=== PATIENT | male | born 1985 | race Caucasian/White ===

== ENCOUNTER 2019-08-04 09:41 | Emergency (ER) | payer BC ==
--- NOTE | 2019-08-04 09:48 | EDM.PDOC ---
ED HPI GENERAL MEDICAL PROBLEM - General Chief Complaint: Chest Pain Stated Complaint: CHEST PAIN Time Seen by Provider: 08/04/19 09:48 Source of Information: Reports: Patient History Limitations: Reports: No Limitations - History of Present Illness INITIAL COMMENTS - FREE TEXT/NARRATIVE: 34-year-old male attends the ED with chief complaint of chest pain. He has some pain on inspiration particular choral air. He has resolving influenza type B infection which infected his entire family. Still has a very paroxysmal minimally productive cough. Cold air makes this worse. He feels like he can get a full deep breath before coughing. Chest pain tends to be pleuritic and worsened by cough but also in the central anterior chest. Appetite has returned. No further fever or chills. No further headache. Perhaps mild sore throats with mild sinus congestion and postnasal drip. Onset: Gradual Onset Date: 08/01/19 (Had influenza type B for the last week starting 10 days ago. Still has paroxysmal cough.) Duration: Day(s):, Intermittent, Waxing/Waning Location: Reports: Chest (Paroxysmal cough.), Other (Associated pleuritic chest pain in a sense of not being able to get his full deep breath.) Quality: Reports: Sharp, Stabbing, Other Severity: Moderate (Paroxysmal cough) Improves with: Reports: None Worsens with: Reports: Other (Worse with exertion especially and exposure ) Context: Denies: Activity (to cold air outside.), Exercise, Lifting, Sick Contact, Trauma, Other Associated Symptoms: Reports: Chest Pain, Cough, cough w sputum, Shortness of Breath. 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 (see below) (None.) Chest Pain Score (Numeric/FACES): 5 - Related Data Allergies Allergy/AdvReac Type Severity Reaction Status Date / Time No Known Allergies Allergy Verified 08/04/19 09:50 Home Meds: Home Meds Doxycycline [Vibramycin] 100 mg PO BID #20 cap 08/04/19 [Rx] FLUoxetine HCl [Fluoxetine HCl] 40 mg PO DAILY 08/04/19 [History] HYDROcodone/Chlorphen Polis [Hydrocodone-Chlorpheniram] 5 ml PO Q12H #60 ml [Rx] dexAMETHasone [Dexamethasone] 4 mg PO Q8H #15 tablet 08/04/19 [Rx] Past Medical History Psychiatric History: Reports: Anxiety, Depression Social & Family History - Tobacco Use Smoking Status *Q: Never Smoker ED ROS GENERAL - Review of Systems Review Of Systems: See Below Constitutional: Reports: Malaise, Fatigue. Denies: Fever, Chills, Decreased Appetite, Weight Loss HEENT: Reports: Other (Sinus congestion postnasal drip.) Respiratory: Reports: Shortness of Breath, Pleuritic Chest Pain, Cough, Sputum. Denies: Wheezing, Hemoptysis, Other Cardiovascular: Reports: Chest Pain (3 minimal sputum at this time.), Dyspnea on Exertion ( Mostly pleuritic-type pain upper anterior chest both sides.). Denies: Lightheadedness, Orthopnea, Palpitations GI/Abdominal: Reports: Decreased Appetite : Reports: No Symptoms (Not quite back to normal yet post influenza.) Musculoskeletal: Reports: No Symptoms Skin: Reports: No Symptoms Neurological: Reports: No Symptoms Psychiatric: Reports: No Symptoms Hematologic/Lymphatic: Reports: No Symptoms Immunologic: Reports: No Symptoms ED EXAM, GENERAL - Physical Exam Exam: See Below Exam Limited By: No Limitations General Appearance: Alert, WD/WN, No Apparent Distress, Other (Vital signs show temperature 36.6. Heart rate is 70 and sinus respiratory 16 BP 148/94 with O2 sats of 98% on room air.) Eye Exam: Bilateral Eye: Normal Inspection (No scleral icterus and no peripheral pallor.), PERRL Ears: Normal TMs Throat/Mouth: Normal Inspection, Normal Lips, Normal Teeth, Normal Oropharynx, Other Head: Atraumatic, Normocephalic Neck: Normal Inspection (No exudates.), Supple, Non-Tender, Full Range of Motion. No: Lymphadenopathy (L), Lymphadenopathy (R) Respiratory/Chest: No Respiratory Distress, Lungs Clear, Normal Breath Sounds, No Accessory Muscle Use, Chest Non-Tender, Other. No: Crackles, Rales, Rhonchi , Wheezing Cardiovascular: Normal Peripheral Pulses, Regular Rate, Rhythm, No Edema ( Productive sounding cough i.e. bronchitis.), No Gallop, No Murmur, No Rub Peripheral Pulses: 3+: Posterior Tibial (L), Posterior Tibial (R), Dorsalis Pedis (L), Dorsalis Pedis (R) GI/Abdominal: Normal Bowel Sounds, Soft, Non-Tender, No Organomegaly, No Abnormal Bruit, No Mass, Pelvis Stable, Other Back Exam: Normal Inspection, Full Range of Motion. No: CVA Tenderness (L), CVA Tenderness (R) Extremities: Normal Inspection, Normal Range of Motion, Non-Tender Neurological: Alert, Oriented, CN II-XII Intact, Normal Cognition, Normal Gait ( No surgical scars) Psychiatric: Normal Affect, Normal Mood Skin Exam: Warm, Dry, Intact, Normal Color, No Rash EKG INTERPRETATION EKG Date: 08/04/19 Time: 09:56 Rhythm: NSR Rate (Beats/Min): 70 Harrison: LAD-Left Harrison Deviation (Mild left axis deviation -27.) P-Wave: Present QRS: Other (There are near Q waves in leads 3 and aVF consider old inferior wall myocardial infarction) ST-T: Other (T-wave inversion flattening in aVF.) QT: Normal EKG Interpretation Comments: Borderline ECG Course - Vital Signs Last Recorded V/S: Last Vital Signs Temp 36.6 C 08/04/19 09:46 Pulse 70 08/04/19 09:46 Resp 16 08/04/19 09:46 BP 148/94 H 08/04/19 09:46 Pulse Ox 100 08/04/19 10:16 - Orders/Labs/Meds Orders: Active Orders 24 hr Category Date Time Status RT Aerosol Therapy [RC] ASDIRECTED Care 08/04/19 09:58 Active Chest 1V Frontal [CR] Stat Exams 08/04/19 09:57 Taken Meds: Medications Discontinued Medications Generic Name Dose Route Start Last Admin Trade Name Freq PRN Reason Stop Dose Admin Albuterol/Ipratropium 3 ml 08/04/19 09:58 08/04/19 10:16 Duoneb 3.0-0.5 Mg/3 Ml NEB 08/04/19 09:59 3 ml ONETIME ONE Administration - Radiology Interpretation Free Text/Narrative:: 34-year-old male presents to the ED due to post influenza symptoms of paroxysmal cough and some pleuritic chest pain worsened by exposure to cool air. 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 Didn't think that he is wheezing. No wheezes identified on exam. Lungs are clear to stage percussion the remainder of his vitals are normal. He does have a paroxysmal productive sounding cough or bronchitis from upper anterior chest. Chest x-ray. Triage nurses to do an ECG which does not show any signs of ischemia. Will try a DuoNeb while he is here to see if this improves his subjective dyspnea. - Re-Assessments/Exams Free Text/Narrative Re-Assessment/Exam: 08/04/19 10:19 chest x-ray done portably is within normal limits showing no signs of pneumonia. Cardiac silhouette is normal in size. 08/04/19 10:24 patient did not feel he got much relief from the DuoNeb treatment. Plan due to his persistent sinus congestion made worse by coughing and severe paroxysmal cough he will be treated with antibiotic and 100 mg twice daily for the next 10 days. Cough syrup will be sent us 5 mils every 12 hours when necessary for cough relief. I'm going to place him on dexamethasone 4 mg 3 times a day for the next 5 days to reduce inflammation of the upper airway. Departure - Departure Time of Disposition: 10:25 Disposition: Home, Self-Care 01 Reason for Transfer *Q: Other Condition: Fair Clinical Impression: Sinusitis, acute Qualifiers: Sinusitis location: frontal Recurrence: recurrent Qualified Code(s): J01.11 - Acute recurrent frontal sinusitis Acute bronchitis Qualifiers: Bronchitis organism: other organism Qualified Code(s): J20.8 - Acute bronchitis due to other specified organisms Prescriptions: dexAMETHasone [Dexamethasone] 4 mg PO Q8H #15 tablet Doxycycline [Vibramycin] 100 mg PO BID #20 cap HYDROcodone/Chlorphen Polis [Hydrocodone-Chlorpheniram] 5 ml PO Q12H #60 ml Instructions: Acute Bronchitis, Adult, [id number], Sinusitis, Adult Referrals: Radames Ruiz MD [Primary Care Provider] - Forms: ED Department Discharge, ED Return to Work/School Form Additional Instructions: Evaluation the emergency room today in regards to severe paroxysmal cough made worse by exposure to cool air outside. Opening influenza infection. Currently sinus infection with postnasal drip aggravating cough. Chest x-ray was negative for pneumonia. No real improvement with a trial of inhaled albuterol and Atrovent. Suggest treatment with antibiotic toxic and 100 mg twice daily for the next 10 days for sinus congestion and bronchitis. Use dexamethasone 4 mg tablet 3 times daily usually with meals for the next 5 days to reduce inflammation of both the sinuses and bronchial tubes. Syrup is to be pending tests 5 mils about an hour before going to bed and then half a teaspoon in the morning or before going to work if needed until cough resolves. Expect gradual improvement over the next 3-5 days. Sepsis Event Note - Focused Exam Vital Signs: Vital Signs Temp Pulse Resp BP Pulse Ox Pulse Ox 08/04/19 10:16 100 08/04/19 09:46 36.6 C 70 16 148/94 H 98 Date Exam was Performed: 08/04/19 Time Exam was Performed: 10:24 - My Orders Last 24 Hours: My Active Orders 08/04/19 09:57 Chest 1V Frontal [CR] Stat 08/04/19 09:58 RT Aerosol Therapy [RC] ASDIRECTED - Assessment/Plan Last 24 Hours: My Active Orders 08/04/19 09:57 Chest 1V Frontal [CR] Stat 08/04/19 09:58 RT Aerosol Therapy [RC] ASDIRECTED
[2019-08-04] MEDS ORDERED: Albuterol/Ipratropium 3.0-0.5 MG/3 ML Neb Soln NEB ONE (09:58)
--- NOTE | 2019-08-04 11:10 | CR ---
Chest: Portable view of the chest was obtained. Comparison: No prior chest x-ray. Heart size and mediastinum are normal. Lungs are clear with no acute parenchymal change. Bony structures are grossly intact. Impression: 1. Nothing acute is seen on portable chest x-ray. Diagnostic code #1 This report was dictated in [place] Standard Time
== END 2019-08-04 10:50 | disposition home or self-care (01) ==
LOC: JD.ED 09:41
DX: J20.8 Acute bronchitis due to other specified organisms (principal); J01.11 Acute recurrent frontal sinusitis; F32.9 Major depressive disorder, single episode, unspecified; F41.9 Anxiety disorder, unspecified; Z79.899 Other long term (current) drug therapy
CPT/HCPCS: 71045; 71045-26; 93010; 94640; 99283; 99285-25; J7620-GY

== ENCOUNTER 2023-11-23 07:05 | Emergency (ER) | payer BC ==
[2023-11-23] MEDS: cefTRIAXone 2 GM in Sodium Chloride 0.9% 100 ML IV ONE (08:17)
[2023-11-23] MEDS: Sodium Chloride 0.9% 10 ML Syringe FLUSH PRN (08:17)
[2023-11-23] MEDS: Ketorolac 30 MG/ML SDV IVPUSH SCH (08:39)
== END 2023-11-23 09:40 | disposition home or self-care (01) ==
LOC: JD.ED 07:05
DX: L73.9 Follicular disorder, unspecified (principal); Z79.899 Other long term (current) drug therapy
CPT/HCPCS: 96365; 96375; 99283; J0696; J1885; J3490; 99284